=== PATIENT | female | born 1950 | race Caucasian/White ===

== ENCOUNTER 2022-05-27 01:16 | Emergency (ER) | payer OTHER ==
[~2022-05-27] VITALS: Ht 165.1 cm; Wt 61.2 kg
[2022-05-27] MEDS ORDERED: HYDR-3980 PO (02:04)
[2022-05-27] MEDS ORDERED: FAMO-132 PO (02:04)
[2022-05-27] MEDS ORDERED: ASPI81TA31 PO (02:04)
[2022-05-27] MEDS ORDERED: METO-356 PO (02:04)
[2022-05-27] MEDS ORDERED: BENA40TA67 PO (02:04)
[2022-05-27] MEDS ORDERED: HEPA500034 SUBCUT (02:04)
[2022-05-27] MEDS ORDERED: DOCU100C36 PO (02:04)
[2022-05-27] MEDS ORDERED: ACET-2154 PO (02:04)
--- NOTE | 2022-05-27 02:04 | NUR ---
patient was bib ambulance from rehab facility with c/o chest pain, patient is A/O X4, NO S/S OF ANY DISTRESS NOTED, RESPIRATIONS EVEN AND UNLABORED, ABD SOFT, NON-TENDER TO PALPATION, MD AT BEDSIDE, PATIENT INFORMED OF PLAN OF CARE. 130/70-75-18-98% ON ROOM AIR. SIDE RAILS UP WILL CONTINUE TO MONITOR.
[2022-05-27] MEDS ORDERED: KETOROLAC TROMETHAMINE 60 MG INJ IM ONE ×3 (03:00→04:25)
[2022-05-27 03:42] LABS: HEMATOCRIT 34.3 % (31.2-41.9); MEAN CORPUSCULAR HEMOGLOBIN 30.5 uug (24.7-32.8); MEAN CORPUSCULAR VOLUME 89.5 fL (75.5-95.3); PLATELET COUNT (AUTO) 192 K/uL (179-408)
[2022-05-27 03:48] LABS: CARBON DIOXIDE 32 mmol/L (21-32); CHLORIDE 101 mmol/L (98-107); CREATININE 0.7 mg/dL (0.6-1.3); GLUCOSE 139 mg/dL (74-106); POTASSIUM 4.2 mmol/L (3.5-5.1); UREA NITROGEN, BLOOD 9 mg/dL (7-18)
[2022-05-27 04:09] LABS: ALANINE AMINOTRANSFERASE 38 U/L (14-59); ALKALINE PHOSPHATASE 59 U/L (50-136); ASPARTATE AMINOTRANSFERASE 22 U/L (15-37); BILIRUBIN,DIRECT 0.4 mg/dL (0.0-0.2); BILIRUBIN,TOTAL 1.5 mg/dL (0.2-1.0); TOTAL PROTEIN, SERUM 6.8 g/dL (6.4-8.2)
--- NOTE | 2022-05-27 05:33 | NUR ---
patient sleeping at this time, patient aware awaiting medical records from [email or web address] was signed and faxed.
--- NOTE | 2022-05-27 05:43 | NUR ---
111/69-88-18-99% room air, assisted into position of comfort.
[2022-05-27] MEDS ORDERED: NAPR-1164 PO (06:37)
[2022-05-27] MEDS ORDERED: CYCL5TAB PO (06:37)
--- NOTE | 2022-05-27 07:17 | NUR ---
Report given to on comming nurse Alexis, patient remains stable.
--- NOTE | 2022-05-27 07:24 | NUR ---
Called for transportation back to facility ETA [id number].
--- NOTE | 2022-05-27 08:00 | NUR ---
RECEIVED PT IN NAD; VSS. PT DENIES CP OR PALPITATIONS. PT ON CARDIAC MONITORING. SHOWING SR. PT WAITING FOR AMB. TRANSPORTATION BACK TO [facility].
--- NOTE | 2022-05-27 10:43 | NUR ---
PT UPDATED ON NEW ETA (1100) FOR BLS TRANSPORT.
[2022-05-27 11:07] VITALS: BP 108/55
--- NOTE | 2022-05-27 11:08 | NUR ---
Patient discharged to [facility] in stable condition. Written and verbal after care instructions given. Patient verbalizes understanding of instructions. Stressed follow up or return to ER for worsening s/s.
== END 2022-05-27 12:51 ==
LOC: ER 01:16
DX: R07.89 Other chest pain (principal); E78.5 Hyperlipidemia, unspecified; Z79.899 Other long term (current) drug therapy; K91.5 Postcholecystectomy syndrome
CPT/HCPCS: 99285; 87426; 80076; 80048; 85025; 85379; 84484 ×2; 36415; 93005; 71101; 96372; J1885 ×2; A4663